=== PATIENT | male | born 1965 | race American Indian/Alaskan Native ===

== ENCOUNTER 2017-04-05 15:48 | Inpatient (IN) | payer MEDICAID ==
[2017-04-05 15:48] VITALS: BMI 26.4
[2017-04-05 17:06] LABS: BASO # 0.01 K/mm3 (0.0-2.0); BASO % 0.2 % (0.0-3.0); EOS # 0.2 (0.0-0.7); EOS % 3.4 % (1.5-5.0); GRAN # 2.76 (1.4-6.5); GRAN % 54.6 % (50.0-68.0); HEMOGLOBIN 13.1 gm/dL (14.0-18.0); LYMPH # 1.7 (1.2-3.4); LYMPH % 32.9 % (22.0-35.0); MEAN CELL VOLUME 79.2 fL (80.0-105.0); MEAN CORPUSCULAR HGB CONC 32.8 g/dl (31.0-37.0); MEAN PLATELET VOLUME 9.8 fl (7.0-11.0); MONO # 0.5 (0.1-0.6); MONO % 8.9 % (1.0-6.0); PLATELET COUNT 187 10^3/uL (120.0-450.0); RBC 5.04 10^6/uL (3.5-6.1); RED CELL DISTRIBUTION WIDTH 14.3 % (11.5-14.5); WHITE BLOOD COUNT 5.1 10^3/ul (4.5-11.0)
[2017-04-05 17:18] LABS: ALBUMIN 4.2 g/dL (3.0-4.8); ALT/SGPT 31 U/L (7-56); AST/SGOT 36 U/L (15-59); BLOOD UREA NITROGEN 18 mg/dL (7-21); CALCIUM 9.2 mg/dL (8.4-10.5); GFR AFRICAN-AMERICAN > 60; GFR NON-AFRICAN AMERICAN > 60
--- NOTE | 2017-04-05 17:25 | ED PDOC ---
Arrival/HPI - General Chief Complaint: Psychiatric Evaluation Time Seen by Provider: 04/05/17 16:14 Historian: Patient - History of Present Illness Narrative History of Present Illness (Text): 04/05/17 17:08 51-year-old male with a history of HIV presents today feeling paranoid and more anxious worsening over the past 2 weeks. Patient states he feels like he can't stay in a room for a long period of time because people are following him. Patient states throughout the evening he was peaking in and out of his window and was unable to sleep because he was very paranoid. Patient states he has a history of schizophrenia as well as posttraumatic stress disorder. Patient denies chest pain or shortness of breath. Denies abdominal pain. Denies fevers or chills. No other complaints Time/Duration: > week (2 weeks) Symptom Onset: Gradual Symptom Course: Worsening Past Medical History - Provider Review Nursing Documentation Reviewed: Yes - Travel History Have you recently traveled outside [place] w/in the past 3 mons?: No - Tetanus Immunization Tetanus Immunization: Unknown - Past Medical History Past Medical History: Unable to Obtain - Cardiac Hx Cardiac Disorders: No Hx Angina: No Hx Congestive Heart Failure: No Hx Heart Murmur: No Hx Hypertension: Yes - Pulmonary Hx Tuberculosis: No - Neurological HX Cerebrovascular Accident: No Hx Seizures: No - Renal Hx Renal Disorder: No - Endocrine/Metabolic Hx Endocrine Disorders: No - Hematological/Oncological Hx Hepatitis C: Yes - Musculoskeletal/Rheumatological Hx Falls: No Hx Rhabdomyolysis: Yes - Gastrointestinal Hx Gastrointestinal Disorders: Yes Hx Diverticulitis: Yes - Genitourinary/Gynecological Hx Genitourinary Disorders: Yes Hx Reproductive Disorders: No Hx Sexually Transmitted Diseases: Yes - Psychiatric Hx Post Traumatic Stress Disorder: Yes Hx Schizophrenia: Yes Hx Substance Use: No (DENIES) Other/Comment: antisocial, ADHD - Past Surgical History Past Surgical History: Unable to Obtain - Surgical History Hx Cardiac Catheterization: No - Suicidal Assessment Feels Threatened In Home Enviroment: No Family/Social History - Physician Review Nursing Documentation Reviewed: Yes Family/Social History: Unknown Family HX Smoking Status: Unknown If Ever Smoked Hx Alcohol Use: Yes Hx Substance Use: No (DENIES) Hx Substance Use Treatment: No Allergies/Home Meds Allergies/Adverse Reactions: Allergies NSAIDS (Non-Steroidal Anti-Inflamma Allergy (Verified 04/05/17 16:37) RASH Home Medications: Home Meds Medication Instructions Recorded Confirmed Amphetamine Salt Combination 10 mg PO 04/05/17 [Adderall] Clonazepam [Klonopin] 2 mg PO BID PRN 04/05/17 04/05/17 Mirtazapine [Remeron] 45 mg PO HS 04/05/17 04/05/17 Oxycodone HCl/Acetaminophen 7.5 mg PO TID 04/05/17 04/05/17 [Percocet 7.5-325 mg Tablet] Quetiapine Fumarate [Seroquel] 400 mg PO 04/05/17 cloNIDine [Catapres] 0.3 mg PO TID 04/05/17 04/05/17 Review of Systems - Review of Systems Constitutional: absent: Fatigue, Fevers Respiratory: absent: SOB, Cough Cardiovascular: absent: Chest Pain, Palpitations Gastrointestinal: absent: Abdominal Pain, Nausea, Vomiting Genitourinary Male: absent: Dysuria, Frequency, Hematuria Musculoskeletal: absent: Arthralgias Skin: Rash Neurological: absent: Headache, Dizziness Psychiatric: Anxiety, Depression, Suicidal Ideation Physical Exam Vital Signs Reviewed: Yes Vital Signs Temp Pulse Resp BP Pulse Ox 04/05/17 15:54 97.6 F 74 18 154/104 H 97 Temperature: Afebrile Blood Pressure: Hypertensive Pulse: Regular Respiratory Rate: Normal Appearance: Positive for: Well-Appearing, Non-Toxic, Comfortable Pain Distress: None Mental Status: Positive for: Alert and Oriented X 3 - Systems Exam Head: Present: Atraumatic Mouth: Present: Moist Mucous Membranes Neck: Present: Normal Range of Motion Respiratory/Chest: Present: Clear to Auscultation, Good Air Exchange. No: Respiratory Distress, Accessory Muscle Use Cardiovascular: Present: Regular Rate and Rhythm, Normal S1, S2. No: Murmurs Abdomen: No: Tenderness Upper Extremity: Present: Normal ROM Lower Extremity: Present: Normal ROM Neurological: Present: GCS=15, Speech Normal Skin: Present: Warm, Dry, Rashes (multiple hyperpigmented excoriated lesions on legs and arms. ) Psychiatric: Present: Alert, Oriented x 3 Medical Decision Making ED Course and Treatment: 04/05/17 17:30 Patient is nontoxic well-appearing in no distress. CBC WNL CMP WNL cpk; 414 Tylenol WNL Salicylate WNL Alcohol level WNL Urine drug screen +opiates UA; wnl cxr: wnl ekg NSR at 74b/m no st elevations, left atrial enlargement. pt is medically cleared for PES evaluation Patient was seen and evaluated by PES screener: David. Impression;schizophrenia admit to behavioral health floor. - Lab Interpretations Lab Results: 04/05/17 16:35 04/05/17 16:35 Lab Results 04/05/17 19:50: Urine Opiates Screen Positive H, Urine Methadone Screen Negative , Ur Barbiturates Screen Negative, Ur Phencyclidine Scrn Negative, Ur Amphetamines Screen Negative, U Benzodiazepines Scrn Negative, U Oth Cocaine Metabols Negative, U Cannabinoids Screen Negative 04/05/17 19:50: Urine Color Yellow, Urine Appearance Clear, Urine pH 6.0, Ur Specific [place] >= 1.030, Urine Protein Negative, Urine Glucose (UA) Negative, Urine Ketones Negative, Urine Blood Negative, Urine Nitrate Negative, Urine Bilirubin Negative, Urine Urobilinogen 0.2, Ur Leukocyte Esterase Negative 04/05/17 16:35: Alcohol, Quantitative < 10 04/05/17 16:35: Salicylates 9, Acetaminophen < 10.0 L 04/05/17 16:35: Sodium 141, Potassium 3.8, Chloride 97 L, Carbon Dioxide 34 H, Anion Gap 14, BUN 18, Creatinine 1.0, Est GFR ( Amer) > 60, Est GFR (Non- Af Amer) > 60, Random Glucose 123 H, Calcium 9.2, Total Bilirubin 0.3, AST 36, ALT 31, Alkaline Phosphatase 69, Total Creatine Kinase 414 H, CK-MB (CK-2) 3.9 H , CK-MB (CK-2) % Cancelled, Total Protein 8.4 H, Albumin 4.2, Globulin 4.2, Albumin/Globulin Ratio 1.0 L 04/05/17 16:35: WBC 5.1 D, RBC 5.04, Hgb 13.1 L, Hct 39.9 L, MCV 79.2 L, MCH 26.0, MCHC 32.8, RDW 14.3, Plt Count 187, MPV 9.8, Gran % 54.6, Lymph % (Auto) 32.9, [place] % (Auto) 8.9 H, Eos % (Auto) 3.4, Baso % (Auto) 0.2, Gran # 2.76, Lymph # 1.7, [place] # 0.5, Eos # 0.2, Baso # 0.01 - RAD Interpretation Radiology Orders: 04/05/17 16:38 CHEST PORTABLE [RAD] Stat - Medication Orders Current Medication Orders: Acetaminophen (Tylenol 325mg Tab) 650 mg PO Q4 PRN PRN Reason: Pain, moderate (4-7) Al Hydrox/Mg Hydrox/Simethicone (Maalox Plus 30 Ml) 30 ml PO DAILY PRN PRN Reason: Upset Stomach Clonazepam (Klonopin) 2 mg PO BID PRN; Protocol PRN Reason: Agitation Clonidine HCl (Catapres) 0.3 mg PO TID [facility] Last Admin: 04/05/17 23:57 Dose: 0.3 mg Magnesium Hydroxide (Milk Of Magnesia) 30 ml PO DAILY PRN PRN Reason: Constipation Mirtazapine (Remeron) 45 mg PO HS [facility] Last Admin: 04/05/17 23:57 Dose: 45 mg Oxycodone/Acetaminophen (Percocet 5/325 Mg Tab) 1.5 tab PO TID [facility] Stop: 04/09/17 08:01 Quetiapine Fumarate (Seroquel) 400 mg PO HS [facility] PRN Reason: Protocol Last Admin: 04/05/17 23:55 Dose: 400 mg Disposition/Present on Arrival - Present on Arrival Any Indicators Present on Arrival: No History of DVT/PE: No History of Uncontrolled Diabetes: No Urinary Catheter: No History of Decub. Ulcer: No History Surgical Site Infection Following: None - Disposition Have Diagnosis and Disposition been Completed?: Yes Diagnosis: Schizophrenia Disposition: HOSPITALIZED Disposition Time: 20:35 Patient Plan: Admission Condition: FAIR
[2017-04-05 17:30] LABS: SALICYLATE 9 mg/dL (2.0-20.0)
[2017-04-05 17:31] LABS: ACETAMINOPHEN < 10.0 ug/ml (10.0-20.0)
[2017-04-05 17:33] LABS: CK-MB 3.9 ng/mL (0.0-3.6)
[2017-04-05 20:00] LABS: URINE BILIRUBIN NEGATIVE (NEGATIVE); URINE BLOOD NEGATIVE (NEGATIVE); URINE GLUCOSE (UA) NEGATIVE (NEGATIVE); URINE LEUKOCYTE ESTERASE NEGATIVE Leu/uL (NEGATIVE); URINE NITRATE NEGATIVE (NEGATIVE); URINE PROTEIN NEGATIVE mg/dL (<30 mg/dL); URINE UROBILINOGEN 0.2 E.U./dL (<1 E.U./dL)
[2017-04-05 20:02] LABS: URINE APPEARANCE CLEAR (CLEAR); URINE COLOR YELLOW (YELLOW)
[2017-04-05 20:23] LABS: BARBITURATES, UR NEGATIVE (NEGATIVE); BENZODIAZEPINES, UR NEGATIVE (NEGATIVE); OPIATES, UR POSITIVE (NEGATIVE); PHENCYCLIDINE, UR NEGATIVE (NEGATIVE)
--- NOTE | 2017-04-05 20:37 | CARD ---
APPROVED REPORT EKG Measurement Heart [id number] <Conclusion> Normal sinus rhythm Possible Left atrial enlargement Borderline ECG
[2017-04-05] MEDS ORDERED: Alum-Mag Hydrox-Simethicone Susp (30 mL) PO PRN (23:25)
[2017-04-05] MEDS ORDERED: Magnesium Hydroxide Susp 30 ml UD PO PRN (23:25)
--- NOTE | 2017-04-06 03:27 | PCM.BM ---
Treatment Plan Problems - Problems identified on initial assessmt delusions Date Initiated: 04/05/17 Time Initiated: 21:40 Assessment reference: NA Status: Active Priority: 1 visual hallucinations Date Initiated: 04/05/17 Time Initiated: 21:40 Assessment reference: NA Status: Active Priority: 2 social isolation Date Initiated: 04/05/17 Time Initiated: 21:40 Assessment reference: NA Status: Active Priority: 3 Treatment assets and liabiliti Patient Assests: cooperative, self-reliant, ADL independent, strong rudolph Patient Liabilities: live alone, poor support system, medical problems - Milieu Protocol Maintain good personal hygiene: daily Encourage regular showers, daily Remind patient to perform daily oral care Maintain personal safety: every shift Educate patient to report safety concerns to staff, every shift Monitor environment for contraband/sharps Medication safety: Monitor for expected outcome, potential side effects: every shift, Assess barriers to learning: every shift, Assess readiness for medication education: every shift Discharge/Continuing Care - Education Needs Education Needs: Patient Medication, Patient Coping Skills - Discharge Discharge Criteria: Free of Suicidal thoughts, Free of paranoid thoughts Discharge to:: Home
[2017-04-06 03:33] VITALS: O2SAT 99
[2017-04-06 07:37] VITALS: BP 134/90; PULSE 105; RESP 20; TEMP 78.6
[2017-04-06] MEDS ORDERED: Oxycodone/Acetaminophen 5/325 mg Tab PO SCH (08:00)
[2017-04-06 08:33] LABS: HDL CHOLESTEROL 51 mg/dL (29-60)
[2017-04-06 08:44] LABS: LDL CHOLESTEROL 92 mg/dL (0-129)
--- NOTE | 2017-04-06 09:26 | RAD ---
HISTORY: PES eval COMPARISON: Comparison made with prior chest radiographs 10/05/2014 FINDINGS: LUNGS: No active pulmonary disease. PLEURA: No significant pleural effusion identified, no pneumothorax apparent. CARDIOVASCULAR: Normal. OSSEOUS STRUCTURES: No significant abnormalities. VISUALIZED UPPER ABDOMEN: Normal. OTHER FINDINGS: None. IMPRESSION: No acute infiltrates.
--- NOTE | 2017-04-06 10:25 | CP.PCM.PCO ---
<PAVITHRA HIGH - Last Filed: 04/06/17 12:59> Physician Communication Note - Physician Communication Note Physician Communication Note: Please see attached section for INTERNAL SPECIALIST summary Summary - Summary of Event Summary of Event: Reason for Rapid Response: Patient unresponsive Time of Rapid Response call: 8:43 Location: Psychiatric Unit Patient: 51 year old black male Originally admitted for: Paranoia and anxiety Physical Exam: Vitals: BP: 116/78, HR: 91, RR: 18, Temp: 97.8, Glucose: 93, O2%: 97% Head: normocephalic, atraumatic Eyes: B/L pupillary constriction Mouth: Dry mucous membranes CV: RRR, S1 and S2 present, no murmurs, no gallops Lung: Diminished breathing sounds, no wheezing Vascular: pedal and radial pulses palpable Neuro: not obtainable due to being non responsive and AMS Skin: diaphoretic Responded to rapid response. Patient was initially found to be unresponsive upon arrival. Patient was seated and slumped over with his head facing his chest. Patient was AMS however responsive when engaged vocally as well as with noxious stimuli. Within 3 minutes, patient became diaphoretic and more confused due to hypotension. Patient was placed in a supine position, when supine, patient became alert and oriented inquiring regarding the current situation. IV access was successfully placed in right arm. 2 liters NS were given, patient was transferred to a stretcher; diaphoresis resolved and patient became completely responsive asking for help and his physician. Patient stated he was hot and wanted to go in the hallway to cool down. Due to aggression including both trying to get up from stretcher and remove IV from arm, patient was given 0.5 mg ativan while on the psych unit. Patient was then transferred to the ED; BP was found to be 153/101. Patient will remain in ED for further evaluation, treatment, and monitoring. PMH: patient is a 51 year old male with a PMH HTN, HIV, and psychiatric disorder. Patient states he doesn't always take his medications. Past social history significant for heroin and alcohol abuse. Patient states that he brought himself to the ED because he was feeling paranoid and anxious that people were following him. He is currently prescribed Percocet 1.5 tab PO TID for which he takes not as prescribed, sometimes taking more than one dose at a time. Family history non contributory. Surgical history includes spinal surgery. <Julian Singh P - Last Filed: 04/07/17 07:19> Attending/Attestation - Attestation I have personally seen and examined this patient.: Yes I have fully participated in the care of the patient.: Yes I have reviewed all pertinent clinical information: Yes Notes (Text): Agree with above also patient has been on clonidine 0.3 mg tid which could be new medication, and probably s/e.
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
--- NOTE | 2017-04-06 13:28 | PCM.PYCHDC ---
Mental Status Examination - Mental Status Examination Orientation: Person Memory: Impaired Mood: Other (AMS) Affect: Other (flat) Speech: Pressured Attention: Poor Concentration: Poor Association: Loose Fund of Knowledge: Poor Formal Thought Process: Hallucinations, Delusions, Paranoia, Loosening of associations Description of patient's judgement and insight: unknown Psychotic Thoughts and Behaviors: pt is paranoid/psychotic Suicidal Ideation: No Current Homicidal Ideation?: No Discharge Summary - Discharge Note Reason for Hospitalization: pt was admitted for evaluation of psychotic symptoms possible suicidal ideations Psychiatric History (includes Medical, Family, Personal Hx): see HPI Laboratory Data: Abnormal Lab Results 04/06/17 04/06/17 04/06/17 07:40 07:40 07:40 POC Glucose (mg/dL) Fasting Glucose 102 Triglycerides 81 Cholesterol 166 LDL Cholesterol Direct 92 HDL Cholesterol 51 TSH 3rd Generation 0.32 L 04/06/17 08:45 POC Glucose (mg/dL) 93 Fasting Glucose Triglycerides Cholesterol LDL Cholesterol Direct HDL Cholesterol TSH 3rd Generation Consultations:: List each consultation separately and include: 1. Reason for request. 2. Findings. 3. Follow-up Consultations: medical team saw pt, pt was transferred to ED Summary of Hospital Course include:: 1. Description of specific treatment plan utilized for patients during their course of treatmen. 2. Summarize the time- course for resolution of acute symptoms and/or regressed behaviors. 3. Describe issues identified and worked on during hospitalization. 4. Describe medication utilized. 5. Describe medical problems identified and treated. 6. Reassessment of suicide risk Summary of Hospital Course: Pt was accepted by [facility] over night. Shortly pt is 51yo AAM with self reported h/o of depression, anxiety (PTSD), schizophrenia, antisocial personality d/o, multiple admissions in the past, most recent about two years ago, was admitted to the psychiatric inpatient unit for evaluation and stabilization of depressive, anxiety, psychotic symptoms and possible suicidal ideation. This financial underwriter walked into the unit and rapid response was called by RN. as per RN report pt was eating and became catatonic, was not responding to verbal command. Vitals: BP: 116/78, HR: 91, RR: 18, Temp: 97.8, Glucose: 93, O2%: 97% pt also was diaphoretic pt was seen by medical team, recommended to be transferred to the ED pt became anxious, was repeating "I am sorry, i am sorry what I have done", tried to pull IV, this financial underwriter gave 0.5mg IV push of ativan. pt was transferred to the ED uneventfully. pls see Medical team note for more detailed information. 04/05/17 16:35 04/05/17 16:35 Lab Results 04/06/17 08:45: POC Glucose (mg/dL) 93 04/06/17 07:40: TSH 3rd Generation 0.32 L 04/06/17 07:40: Fasting Glucose 102 04/06/17 07:40: Triglycerides 81, Cholesterol 166, LDL Cholesterol Direct 92, HDL Cholesterol 51 04/05/17 19:50: Urine Opiates Screen Positive H, Urine Methadone Screen Negative , Ur Barbiturates Screen Negative, Ur Phencyclidine Scrn Negative, Ur Amphetamines Screen Negative, U Benzodiazepines Scrn Negative, U Oth Cocaine Metabols Negative, U Cannabinoids Screen Negative 04/05/17 19:50: Urine Color Yellow, Urine Appearance Clear, Urine pH 6.0, Ur Specific [place] >= 1.030, Urine Protein Negative, Urine Glucose (UA) Negative, Urine Ketones Negative, Urine Blood Negative, Urine Nitrate Negative, Urine Bilirubin Negative, Urine Urobilinogen 0.2, Ur Leukocyte Esterase Negative 04/05/17 16:35: Alcohol, Quantitative < 10 04/05/17 16:35: Salicylates 9, Acetaminophen < 10.0 L 04/05/17 16:35: Sodium 141, Potassium 3.8, Chloride 97 L, Carbon Dioxide 34 H, Anion Gap 14, BUN 18, Creatinine 1.0, Est GFR ( Amer) > 60, Est GFR (Non- Af Amer) > 60, Random Glucose 123 H, Calcium 9.2, Total Bilirubin 0.3, AST 36, ALT 31, Alkaline Phosphatase 69, Total Creatine Kinase 414 H, CK-MB (CK-2) 3.9 H , CK-MB (CK-2) % Cancelled, Total Protein 8.4 H, Albumin 4.2, Globulin 4.2, Albumin/Globulin Ratio 1.0 L 04/05/17 16:35: WBC 5.1 D, RBC 5.04, Hgb 13.1 L, Hct 39.9 L, MCV 79.2 L, MCH 26.0, MCHC 32.8, RDW 14.3, Plt Count 187, MPV 9.8, Gran % 54.6, Lymph % (Auto) 32.9, [place] % (Auto) 8.9 H, Eos % (Auto) 3.4, Baso % (Auto) 0.2, Gran # 2.76, Lymph # 1.7, [place] # 0.5, Eos # 0.2, Baso # 0.01 Vital Signs Temp Pulse Resp BP Pulse Ox 04/06/17 02:00 78.6 F L 105 H 20 134/90 04/05/17 23:57 82 154/107 H 04/05/17 21:40 98.5 F 83 154/107 H 99 04/05/17 15:54 97.6 F 74 18 154/104 H 97 pt was transferred to ED uneventfully - Diagnosis (1) Schizophrenia Current Visit: Yes Status: Acute - Final Diagnosis (DSM 5) Condition upon Discharge: GUARDED Disposition: OTHER INSTITUTION Follow-up Treatment Plan: pt was transferred to ED psychiatist will f/u on this pt on the medical side will advise accordingly as per ED note pt was on the following meds: Amphetamine Salt Combination [Adderall] 10 mg PO DAILY 04/05/17 Clonazepam [Klonopin] 2 mg PO BID PRN 04/05/17 Mirtazapine [Remeron] 45 mg PO HS 04/05/17 Oxycodone HCl/Acetaminophen [Percocet 7.5-325 mg Tablet] 7.5 mg PO TID 04/05/17 Quetiapine Fumarate [Seroquel] 400 mg PO HS 04/05/17 cloNIDine [Catapres] 0.3 mg PO TID 04/05/17 - Smoking Cessation Smoking Cessation Medication prescribed: No Reason for not providing: AMS - Antipsychotic Medications Pt discharged on 2 or more routine antipsychotic medications: No
== END 2017-04-06 09:07 | disposition short-term general hospital (02) | DRG 430 ==
LOC: ED 15:48 → ERH 20:39 → PSYC 21:55
PROVIDERS: ADMIT Psychiatry & Neurology Psychiatry; ATTEND Psychiatry & Neurology Psychiatry
DX: F20.9 Schizophrenia, unspecified (principal); I95.9 Hypotension, unspecified; Z21 Asymptomatic human immunodeficiency virus [HIV] infection status; I10 Essential (primary) hypertension; F60.2 Antisocial personality disorder; F43.10 Post-traumatic stress disorder, unspecified; F10.10 Alcohol abuse, uncomplicated; Z79.899 Other long term (current) drug therapy

== ENCOUNTER 2017-04-06 09:07 | Observation (INO) | payer MEDICAID ==
--- NOTE | 2017-04-06 09:18 | ED PDOC ---
Arrival/HPI - General Time Seen by Provider: 04/06/17 09:17 Historian: Patient - History of Present Illness Narrative History of Present Illness (Text): 04/06/17 09:18 A 51 year old male was sent into the emergency department from [facility] for altered mental status and lethargy this morning. As per Dr. Singh, patent became altered and appeared lethargic when getting breakfast. He notes diaphoresis and low blood pressure. Patient admits to taking two Oxycodone this morning. ROS limited due to patients state. Time/Duration: Prior to Arrival Context: Other (Psychiatric Unit) Past Medical History - Provider Review Nursing Documentation Reviewed: Yes - Tetanus Immunization Tetanus Immunization: Unknown - Past Medical History Past Medical History: Unable to Obtain - Cardiac Hx Cardiac Disorders: No Hx Angina: No Hx Congestive Heart Failure: No Hx Heart Murmur: No Hx Hypertension: Yes - Pulmonary Hx Tuberculosis: No - Neurological HX Cerebrovascular Accident: No Hx Seizures: No - Renal Hx Renal Disorder: No - Endocrine/Metabolic Hx Endocrine Disorders: No - Hematological/Oncological Hx Hepatitis C: Yes - Musculoskeletal/Rheumatological Hx Falls: No Hx Rhabdomyolysis: Yes - Gastrointestinal Hx Gastrointestinal Disorders: Yes Hx Diverticulitis: Yes - Genitourinary/Gynecological Hx Genitourinary Disorders: Yes Hx Reproductive Disorders: No Hx Sexually Transmitted Diseases: Yes - Psychiatric Hx Schizophrenia: Yes Hx Substance Use: No - Past Surgical History Past Surgical History: Unable to Obtain - Surgical History Hx Cardiac Catheterization: No - Suicidal Assessment Feels Threatened In Home Enviroment: No Family/Social History - Physician Review Nursing Documentation Reviewed: Yes Family/Social History: No Known Family HX Smoking Status: Unknown If Ever Smoked Hx Alcohol Use: No Hx Substance Use: No Hx Substance Use Treatment: No Allergies/Home Meds Allergies/Adverse Reactions: Allergies NSAIDS (Non-Steroidal Anti-Inflamma Allergy (Verified 04/06/17 09:14) RASH Home Medications: Home Meds Medication Instructions Recorded Confirmed Amphetamine Salt Combination 10 mg PO DAILY 04/05/17 04/06/17 [Adderall] Clonazepam [Klonopin] 2 mg PO BID PRN 04/05/17 04/06/17 Mirtazapine [Remeron] 45 mg PO HS 04/05/17 04/06/17 Oxycodone HCl/Acetaminophen 7.5 mg PO TID 04/05/17 04/06/17 [Percocet 7.5-325 mg Tablet] Quetiapine Fumarate [Seroquel] 400 mg PO HS 04/05/17 04/06/17 cloNIDine [Catapres] 0.3 mg PO TID 04/05/17 04/06/17 Review of Systems - Review of Systems Systems not reviewed;Unavailable: Altered Mental Status Physical Exam - Physical Exam Narrative Physical Exam (Text): - Physical exam Patient appears age appropriate. - Systems Exam Head: Present: Atraumatic, Normocephalic Pupils: Present: Pinpoint pupils. Extraocular Muscles: Present: EOMI Conjunctiva: Present: Normal Mouth: Present: Moist Mucous Membranes Neck: Present: Normal Range of Motion. No: MIDLINE TENDERNESS, Paraspinal Tenderness Respiratory/Chest: Present: Clear to Auscultation, Good Air Exchange. No: Respiratory Distress, Accessory Muscle Use, Tachypnic Cardiovascular: Present: Regular Rate and Rhythm, Normal S1, S2, Peripheral Pulses Present. No: Murmurs Abdomen: Present: Normal Bowel Sounds, No: Tenderness, Peritoneal Signs, Rebound, Guarding, Distention Back: Present: Normal Inspection. No: Midline Tenderness, Paraspinal Tenderness Upper Extremity: Present: Normal Inspection. No: Cyanosis, Edema Lower Extremity: Present: Normal Inspection. No: Edema Neurological: Present: Responsive to tactile and verbal stimuli. Slurring Speech. No focal neurological deficits. Skin: Present: Warm, Dry, Normal Color. No: Rashes Lymphatic: Present: OX3, NI, NC Vital Signs Reviewed: Yes Vital Signs Temp Pulse Resp BP Pulse Ox 04/06/17 13:00 91 H 18 154/103 H 98 04/06/17 11:07 74 18 159/106 H 100 04/06/17 09:21 97.9 F 85 18 153/101 H 100 Temperature: Afebrile Blood Pressure: Hypertensive Pulse: Regular Respiratory Rate: Normal Medical Decision Making ED Course and Treatment: 04/06/17 09:18 Impression: 51 year old patient brought in by psychiatric unit with due to a lethargic episode, hypertension and diaphoresis this morning. On exam, the patient has slurred speech and was responsive to verbal and tactile stimuli, otherwise no focal neurological deficits. Plan: -- Chest X-ray -- EKG -- Labs -- Narcan -- Reassess and disposition Progress Notes: 04/06/17 09:19: EKG shows NSR at [address]-segment elevations, normal intervals. Interpreted by me. 04/06/17 09:56: On re-evaluation, patient is more awake and alert after receiving Narcan. Report Date : 04/06/2017 10:24:56 Procedure: Chest xray Dictator : Billy Glez MD IMPRESSION: Poor inspiration with low lung volumes, mild crowded bronchovascular markings and mild bibasilar atelectasis. 04/06/17 13:[address] Julius Genao, accepted pt to med/surg obs for further w/u pt in no distress - Lab Interpretations Lab Results: 04/06/17 09:50 04/06/17 09:50 Lab Results 04/06/17 09:50: PT 11.4, INR 1.06, APTT 27.8 04/06/17 09:50: WBC 5.2, RBC 4.46, Hgb 11.4 L, Hct 35.5 L, MCV 79.6 L, MCH 25.6 , MCHC 32.1, RDW 14.6 H, Plt Count 136, MPV 9.9, Gran % 65.1, Lymph % (Auto) 23.7, [place] % (Auto) 7.7 H, Eos % (Auto) 3.3, Baso % (Auto) 0.2, Gran # 3.37, Lymph # 1.2, [place] # 0.4, Eos # 0.2, Baso # 0.01 04/06/17 09:50: Sodium 139, Potassium 3.3 L, Chloride 104, Carbon Dioxide 27, Anion Gap 11, BUN 12, Creatinine 0.8, Est GFR ( Amer) > 60, Est GFR (Non- Af Amer) > 60, Random Glucose 148 H, Calcium 8.4, Total Bilirubin 0.3, AST 40, ALT 33, Alkaline Phosphatase 61, Total Protein 6.7, Albumin 3.2, Globulin 3.5, Albumin/Globulin Ratio 0.9 L I have reviewed the lab results: Yes - RAD Interpretation Radiology Orders: 04/06/17 09:25 CHEST PORTABLE [RAD] Stat 04/06/17 11:42 HEAD W/O CONTRAST [CT] Stat - Medication Orders Current Medication Orders: Discontinued Medications Naloxone HCl (Narcan) Confirm Administered Dose 0.4 mg .ROUTE .STK-MED ONE Stop: 04/06/17 09:21 Last Admin: 04/06/17 09:33 Dose: Naloxone HCl (Narcan) 0.4 mg IM STAT STA Stop: 04/06/17 09:25 Last Admin: 04/06/17 09:33 Dose: 0.4 mg - Scribe Statement The provider has reviewed the documentation as recorded by the Chicho Garcia training under Juany Calvert Provider Scribe Attestation: All medical record entries made by the Scribe were at my direction and personally dictated by me. I have reviewed the chart and agree that the record accurately reflects my personal performance of the history, physical exam, medical decision making, and the department course for this patient. I have also personally directed, reviewed, and agree with the discharge instructions and disposition. Disposition/Present on Arrival - Present on Arrival Any Indicators Present on Arrival: No History of DVT/PE: No History of Uncontrolled Diabetes: No Urinary Catheter: No History Surgical Site Infection Following: None - Disposition Have Diagnosis and Disposition been Completed?: Yes Diagnosis: Altered mental status Disposition: HOSPITALIZED Disposition Time: 13:39 Patient Plan: Observation Patient Problems: Current Active Problems Problem Status Onset Schizophrenia Acute Condition: GOOD
[2017-04-06 09:19] VITALS: BMI 24.1
[2017-04-06] MEDS ORDERED: Naloxone 0.4 mg/ml Inj (Adult) ONE (09:20)
[2017-04-06] MEDS ORDERED: Naloxone 0.4 mg/ml Inj (Adult) IM STA (09:24)
[2017-04-06 10:18] LABS: BASO # 0.01 K/mm3 (0.0-2.0); BASO % 0.2 % (0.0-3.0); EOS # 0.2 (0.0-0.7); EOS % 3.3 % (1.5-5.0); GRAN # 3.37 (1.4-6.5); GRAN % 65.1 % (50.0-68.0); HEMOGLOBIN 11.4 gm/dL (14.0-18.0); LYMPH # 1.2 (1.2-3.4); LYMPH % 23.7 % (22.0-35.0); MEAN CELL VOLUME 79.6 fL (80.0-105.0); MEAN CORPUSCULAR HEMOGLOBIN 25.6 pg (25.0-35.0); MEAN CORPUSCULAR HGB CONC 32.1 g/dl (31.0-37.0); MEAN PLATELET VOLUME 9.9 fl (7.0-11.0); MONO # 0.4 (0.1-0.6); MONO % 7.7 % (1.0-6.0); PLATELET COUNT 136 10^3/uL (120.0-450.0); RBC 4.46 10^6/uL (3.5-6.1); RED CELL DISTRIBUTION WIDTH 14.6 % (11.5-14.5); WHITE BLOOD COUNT 5.2 10^3/ul (4.5-11.0)
[2017-04-06 10:25] LABS: INR 1.06 (0.93-1.08); PARTIAL THROMBOPLASTIN TIME 27.8 Seconds (23.7-30.8); PROTHROMBIN TIME 11.4 Seconds (9.9-11.8)
--- NOTE | 2017-04-06 10:27 | RAD ---
HISTORY: cough COMPARISON: No prior. FINDINGS: LUNGS: Poor inspiration with low lung volumes, mild crowded bronchovascular markings and mild bibasilar atelectasis. PLEURA: No significant pleural effusion identified, no pneumothorax apparent. CARDIOVASCULAR: Normal. OSSEOUS STRUCTURES: No significant abnormalities. VISUALIZED UPPER ABDOMEN: Normal. OTHER FINDINGS: None. IMPRESSION: Poor inspiration with low lung volumes, mild crowded bronchovascular markings and mild bibasilar atelectasis.
[2017-04-06 10:32] LABS: ALB/GLOB RATIO 0.9 (1.1-1.8); ALBUMIN 3.2 g/dL (3.0-4.8); ALT/SGPT 33 U/L (7-56); AST/SGOT 40 U/L (15-59); BLOOD UREA NITROGEN 12 mg/dL (7-21); CALCIUM 8.4 mg/dL (8.4-10.5); GFR AFRICAN-AMERICAN > 60; GFR NON-AFRICAN AMERICAN > 60
--- NOTE | 2017-04-06 12:05 | CARD ---
APPROVED REPORT EKG Measurement Heart [id number] <Conclusion> Normal sinus rhythm Possible Left atrial enlargement Prolonged QT Abnormal ECG
--- NOTE | 2017-04-06 13:19 | CT ---
PROCEDURE: CT HEAD WITHOUT CONTRAST. HISTORY: ams COMPARISON: Comparison made with prior study 09/27/2014 TECHNIQUE: Axial computed tomography images were obtained through the head/brain without intravenous contrast. Radiation dose: Total exam DLP = mGy-cm. This CT exam was performed using one or more of the following dose reduction techniques: Automated exposure control, adjustment of the mA and/or kV according to patient size, and/or use of iterative reconstruction technique. FINDINGS: HEMORRHAGE: No no acute parenchymal, subarachnoid or extra-axial hemorrhage . BRAIN: No mass effect or edema. No atrophy or chronic microvascular ischemic changes. No obvious parenchymal nor extra-axial mass or collection seen on this noncontrast study. Ventricular and sulcal size are within range of normal for this patient's stated age. VENTRICLES: No obstructive hydrocephalus CALVARIUM: The calvarium is intact PARANASAL SINUSES: Visualized paranasal sinuses well-developed. No fluid levels seen to suggest acute sinusitis. Minor mucosal thickening both maxillary antra. The there is also minor mucosal thickening seen within a few ethmoid air cells. MASTOID AIR CELLS: Unremarkable as visualized. No inflammatory changes. OTHER FINDINGS: None. IMPRESSION: No acute intracranial hemorrhage.
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
[2017-04-06] MEDS ORDERED: Potassium Chloride 20 mEq ER Tab PO STA (16:13)
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
[2017-04-06] MEDS ORDERED: Pneumococcal 23-Valent Vaccine IM ONE (16:40)
[2017-04-06] MEDS ORDERED: Oxycodone/Acetaminophen 2.5/325 mg Tab PO PRN (16:41)
[2017-04-06] MEDS: Bacitracin Ointment 30 GM TUBE TOP SCH (20:28)
[2017-04-07] MEDS: Bacitracin Ointment 30 GM TUBE TOP SCH ×2 (10:38→17:27)
[2017-04-07 11:04] LABS: HEMOGLOBIN 12.9 gm/dL (14.0-18.0); MEAN CELL VOLUME 81.2 fL (80.0-105.0); MEAN CORPUSCULAR HEMOGLOBIN 26.1 pg (25.0-35.0); MEAN CORPUSCULAR HGB CONC 32.2 g/dl (31.0-37.0); MEAN PLATELET VOLUME 9.8 fl (7.0-11.0); RBC 4.94 10^6/uL (3.5-6.1); WHITE BLOOD COUNT 4.9 10^3/ul (4.5-11.0)
[2017-04-07 11:14] LABS: ALB/GLOB RATIO 0.9 (1.1-1.8); ALBUMIN 3.7 g/dL (3.0-4.8); ALT/SGPT 36 U/L (7-56); AST/SGOT 36 U/L (15-59); BLOOD UREA NITROGEN 14 mg/dL (7-21); CALCIUM 9.3 mg/dL (8.4-10.5); GFR AFRICAN-AMERICAN > 60; GFR NON-AFRICAN AMERICAN > 60
[2017-04-07 17:15] VITALS: PULSE 56; RESP 18; TEMP 98.5; O2SAT 100
[2017-04-07 17:21] VITALS: BP 127/84
--- NOTE | 2017-04-07 20:09 | CP.PCM.DIS ---
<Manoj Estrada - Last Filed: 04/07/17 20:02> Provider - Provider Date of Admission: 04/06/17 13:39 Attending physician: Evon Genao MD Consults: Neurology - Dr. Bell Psych - Dr. Ugalde Time Spent in preparation of Discharge (in minutes): 45 Hospital Course - Lab Results Lab Results: Most Recent Lab Values WBC 4.9 10^3/ul (4.5-11.0) 04/07/17 11:00 RBC 4.94 10^6/uL (3.5-6.1) 04/07/17 11:00 Hgb 12.9 gm/dL (14.0-18.0) L 04/07/17 11:00 Hct 40.1 % (42.0-52.0) L 04/07/17 11:00 MCV 81.2 fL (80.0-105.0) 04/07/17 11:00 MCH 26.1 pg (25.0-35.0) 04/07/17 11:00 MCHC 32.2 g/dl (31.0-37.0) 04/07/17 11:00 RDW 15.0 % (11.5-14.5) H 04/07/17 11:00 Plt Count 150 10^3/uL (120.0-450.0) 04/07/17 11:00 MPV 9.8 fl (7.0-11.0) 04/07/17 11:00 Gran % 65.1 % (50.0-68.0) 04/06/17 09:50 Lymph % (Auto) 23.7 % (22.0-35.0) 04/06/17 09:50 Phillips % (Auto) 7.7 % (1.0-6.0) H 04/06/17 09:50 Eos % (Auto) 3.3 % (1.5-5.0) 04/06/17 09:50 Baso % (Auto) 0.2 % (0.0-3.0) 04/06/17 09:50 Gran # 3.37 (1.4-6.5) 04/06/17 09:50 Lymph # 1.2 (1.2-3.4) 04/06/17 09:50 Phillips # 0.4 (0.1-0.6) 04/06/17 09:50 Eos # 0.2 (0.0-0.7) 04/06/17 09:50 Baso # 0.01 K/mm3 (0.0-2.0) 04/06/17 09:50 PT 11.4 Seconds (9.9-11.8) 04/06/17 09:50 INR 1.06 (0.93-1.08) 04/06/17 09:50 APTT 27.8 Seconds (23.7-30.8) 04/06/17 09:50 Sodium 139 mmol/L (132-148) 04/07/17 11:00 Potassium 4.1 mmol/L (3.6-5.0) 04/07/17 11:00 Chloride 101 mmol/L (98-107) 04/07/17 11:00 Carbon Dioxide 29 mmol/L (21-33) 04/07/17 11:00 Anion Gap 13 (10-20) 04/07/17 11:00 BUN 14 mg/dL (7-21) 04/07/17 11:00 Creatinine 0.8 mg/dL (0.5-1.4) 04/07/17 11:00 Est GFR ( Amer) > 60 04/07/17 11:00 Est GFR (Non-Af Amer) > 60 04/07/17 11:00 Random Glucose 91 mg/dL (70-110) 04/07/17 11:00 Calcium 9.3 mg/dL (8.4-10.5) 04/07/17 11:00 Total Bilirubin 0.5 mg/dL (0.2-1.3) 04/07/17 11:00 AST 36 U/L (15-59) 04/07/17 11:00 ALT 36 U/L (7-56) 04/07/17 11:00 Alkaline Phosphatase 60 U/L (38-133) 04/07/17 11:00 Total Protein 7.7 g/dL (5.8-8.3) 04/07/17 11:00 Albumin 3.7 g/dL (3.0-4.8) 04/07/17 11:00 Globulin 4.0 gm/dL 04/07/17 11:00 Albumin/Globulin Ratio 0.9 (1.1-1.8) L 04/07/17 11:00 - Hospital Course Hospital Course: 51 y/o M with PMHx HTN, HIV, Hepatitis C, syphilis, PTSD, social phobia and schizophrenia who initially presented to the psych unit due to psychosis and had a rapid response call due to being found unresponsive. It was later found that the patient had received Remron, Seroquel, and Percocet within a short span of time which attributed to his condition. Pt was given Narcan in the ED and became responsive quickly. Pt also received a Head CT which did not show any acute abnormalities. Pt was seen by Dr. Bell for his unresponsiveness/AMS episode and stated his transient condition was due to overuse of sedating medications. Pt was also seen by Dr. Ugalde, who recommended the patient change his Clonipin to 0.25 TID and continue his Remron and Seroquel at current dosages. However, upon review with the patient, the patient stated he was unwilling to change his Clonipin dosage at this time and would follow up with his psychiatrist outpatient to determine the best dosages for him. Pt stated he needed to leave the hospital due to an upcoming court date. Pt was cleared by psychiatry and was discharged. Pt stated he had all his medication and would continue all medications at home. Discharge Exam - Head Exam Head Exam: ATRAUMATIC, NORMAL INSPECTION, NORMOCEPHALIC - ENT Exam ENT Exam: Mucous Membranes Moist - Respiratory Exam Respiratory Exam: NORMAL BREATHING PATTERN, UNREMARKABLE - Cardiovascular Exam Cardiovascular Exam: RRR, +S1, +S2 - GI/Abdominal Exam GI & Abdominal Exam: Normal Bowel Sounds, Soft. absent: Tenderness - Extremities Exam Extremities exam: normal inspection - Neurological Exam Neurological exam: Alert, Oriented x3 - Psychiatric Exam Psychiatric exam: Normal Affect, Normal Mood - Skin Skin Exam: Normal Color, Warm Additional comments: Multiple lesions on upper and lower extremities b/l Discharge Plan - Discharge Medications Prescriptions: Clonazepam [Klonopin] 0.25 mg PO TID #21 Mirtazapine [Remeron] 15 mg PO HS PRN #7 tab PRN Reason: Insomnia QUEtiapine [Seroquel] 100 mg PO HS #7 tab - Follow Up Plan Condition: GOOD Disposition: HOME/ ROUTINE Instructions: Quetiapine (By mouth), Post Traumatic Stress Disorder (DC), Chronic Hypertension (DC), Altered Mental Status (GEN) Additional Instructions: It is advised that you take psychiatric medications at dosages prescribed to you Please follow up with your PMD and Psychiatrist within 1 week If symptoms reoccur or worsen, please return to hospital <Claudia Esquivel - Last Filed: 04/07/17 22:01> Provider - Provider Date of Admission: 04/06/17 13:39 Attending physician: Evon Genao MD Hospital Course - Lab Results Lab Results: Most Recent Lab Values WBC 4.9 10^3/ul (4.5-11.0) 04/07/17 11:00 RBC 4.94 10^6/uL (3.5-6.1) 04/07/17 11:00 Hgb 12.9 gm/dL (14.0-18.0) L 04/07/17 11:00 Hct 40.1 % (42.0-52.0) L 04/07/17 11:00 MCV 81.2 fL (80.0-105.0) 04/07/17 11:00 MCH 26.1 pg (25.0-35.0) 04/07/17 11:00 MCHC 32.2 g/dl (31.0-37.0) 04/07/17 11:00 RDW 15.0 % (11.5-14.5) H 04/07/17 11:00 Plt Count 150 10^3/uL (120.0-450.0) 04/07/17 11:00 MPV 9.8 fl (7.0-11.0) 04/07/17 11:00 Gran % 65.1 % (50.0-68.0) 04/06/17 09:50 Lymph % (Auto) 23.7 % (22.0-35.0) 04/06/17 09:50 Phillips % (Auto) 7.7 % (1.0-6.0) H 04/06/17 09:50 Eos % (Auto) 3.3 % (1.5-5.0) 04/06/17 09:50 Baso % (Auto) 0.2 % (0.0-3.0) 04/06/17 09:50 Gran # 3.37 (1.4-6.5) 04/06/17 09:50 Lymph # 1.2 (1.2-3.4) 04/06/17 09:50 Phillips # 0.4 (0.1-0.6) 04/06/17 09:50 Eos # 0.2 (0.0-0.7) 04/06/17 09:50 Baso # 0.01 K/mm3 (0.0-2.0) 04/06/17 09:50 PT 11.4 Seconds (9.9-11.8) 04/06/17 09:50 INR 1.06 (0.93-1.08) 04/06/17 09:50 APTT 27.8 Seconds (23.7-30.8) 04/06/17 09:50 Sodium 139 mmol/L (132-148) 04/07/17 11:00 Potassium 4.1 mmol/L (3.6-5.0) 04/07/17 11:00 Chloride 101 mmol/L (98-107) 04/07/17 11:00 Carbon Dioxide 29 mmol/L (21-33) 04/07/17 11:00 Anion Gap 13 (10-20) 04/07/17 11:00 BUN 14 mg/dL (7-21) 04/07/17 11:00 Creatinine 0.8 mg/dL (0.5-1.4) 04/07/17 11:00 Est GFR ( Amer) > 60 04/07/17 11:00 Est GFR (Non-Af Amer) > 60 04/07/17 11:00 Random Glucose 91 mg/dL (70-110) 04/07/17 11:00 Calcium 9.3 mg/dL (8.4-10.5) 04/07/17 11:00 Total Bilirubin 0.5 mg/dL (0.2-1.3) 04/07/17 11:00 AST 36 U/L (15-59) 04/07/17 11:00 ALT 36 U/L (7-56) 04/07/17 11:00 Alkaline Phosphatase 60 U/L (38-133) 04/07/17 11:00 Total Protein 7.7 g/dL (5.8-8.3) 04/07/17 11:00 Albumin 3.7 g/dL (3.0-4.8) 04/07/17 11:00 Globulin 4.0 gm/dL 04/07/17 11:00 Albumin/Globulin Ratio 0.9 (1.1-1.8) L 04/07/17 11:00 Attending/Attestation - Attestation I have personally seen and examined this patient.: Yes I have fully participated in the care of the patient.: Yes I have reviewed all pertinent clinical information, including history, physical exam and plan: Yes Notes (Text): 04/07/17 21:58 Patient seen and examined at bedside. orders, vitals an labs reviewed as well as old notes reviewed. He feels better, admits to good appetite, understands why he is on the medical floor. No new complaints and ambulated without any difficulty. He doesn't want to go back to the voluntary commitment and is deemed safe for discharge with outpatient follow up with his own behavioral health therapist. Compliance with medication reinforced. Agree with the discharge plan as outlined by the resident which was discussed with the patient and he verbalized understanding of the same without any new questions/concerns
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
--- NOTE | 2017-04-09 09:33 | CP.PCM.PCO ---
Physician Communication Note - Physician Communication Note Physician Communication Note: pt was d/c from the medical floor, saw pt
== END 2017-04-07 20:14 | disposition home or self-care (01) ==
LOC: ED 09:07 → ERH 13:39 → 5RNO 15:22
PROVIDERS: ADMIT Internal Medicine; ATTEND Internal Medicine
DX: F32.1 Major depressive disorder, single episode, moderate (principal); F11.24 Opioid dependence with opioid-induced mood disorder; F20.9 Schizophrenia, unspecified; Z21 Asymptomatic human immunodeficiency virus [HIV] infection status; I10 Essential (primary) hypertension; B19.20 Unspecified viral hepatitis C without hepatic coma; Z86.19 Personal history of other infectious and parasitic diseases; F43.10 Post-traumatic stress disorder, unspecified; F40.10 Social phobia, unspecified; G47.00 Insomnia, unspecified; E87.6 Hypokalemia; J98.11 Atelectasis; T39.395A Adverse effect of other nonsteroidal anti-inflammatory drugs [NSAID], initial encounter; L98.9 Disorder of the skin and subcutaneous tissue, unspecified; T40.605A Adverse effect of unspecified narcotics, initial encounter; Z87.19 Personal history of other diseases of the digestive system; Z62.810 Personal history of physical and sexual abuse in childhood; Z79.899 Other long term (current) drug therapy; Z88.6 Allergy status to analgesic agent; Z91.14 Patient's other noncompliance with medication regimen; Z91.5 Personal history of self-harm; Z98.1 Arthrodesis status; Z87.39 Personal history of other diseases of the musculoskeletal system and connective tissue
CPT/HCPCS: 36415; 70450; 71010; 80053; 85025; 85027; 85610; 85730; 93005; 96372; 99285; C9113; G0378; J2310